=== PATIENT | male | born 1970 | race Caucasian/White ===

== ENCOUNTER 2019-02-12 10:11 | Observation (INO) | payer OTHER ==
[~2019-02-12] VITALS: Ht 185.4 cm; Wt 111.1 kg
--- NOTE | 2019-02-12 10:19 | NUR ---
PT AMBULATED TO ER BED 08
[2019-02-12 10:25] VITALS: BP 152/95
--- NOTE | 2019-02-12 10:41 | NUR ---
PT C/O ERECTION X 3-4 HOURS , PT STATES HE HAS PREVIOUS BACK INJURY FROM 3 YEARS AGO THAT RESULTS IN PRIAPISMS, PT ADMITS TO DRINKING WHISKEY TODAY "3-4 SHOTS". DENIES N/V/D; SKIN IS PINK/WARM/DRY; AAOX4 WITH EVEN AND STEADY GAIT; PT DENIES ANY FEVER, CP, SOB, OR COUGH AT THIS TIME; PATIENT STATES PAIN OF 0/10 AT THIS TIME; VSS; PATIENT POSITIONED FOR COMFORT; HOB ELEVATED; BEDRAILS UP X1; BED DOWN. ER MD MADE AWARE OF PT STATUS.
--- NOTE | 2019-02-12 10:50 | NUR ---
PT AMBULATED TO BATHROOM, UNABLE TO PROVIDE URINE SAMPLE.
[2019-02-12] MEDS ORDERED: MULTIVITAMIN-12 10 ML, THIAMINE 100 MG, MAGNESIUM SULFATE 50% 2,000 MG, FOLIC ACID 5 MG... IV ONE ×5 (10:57)
[2019-02-12] MEDS ORDERED: LORazepam 2 MG/ML VIAL IVP ONE (11:00)
[2019-02-12] MEDS ORDERED: diphenhydrAMINE 50 MG/ML VIAL IVP ONE (11:00)
--- NOTE | 2019-02-12 11:09 | NUR ---
CALLED FOR IV BANANA BAG TO PHARMACY.
[2019-02-12] MEDS ORDERED: PHENYLEPHRINE 10 MG/ML VIAL INJ ONE (11:45)
[2019-02-12 11:50] LABS: EOSINOPHILS # (AUTO) 0.2 K/uL (0-0.4); EOSINOPHILS % (AUTO) 5.1 % (0.0-4.0); HEMATOCRIT 43.9 % (36-52); LYMPHOCYTES # (AUTO) 1.9 K/uL (2.0-11.5); LYMPHOCYTES % (AUTO) 46.9 % (20.5-51.1); MEAN CORPUSCULAR HEMOGLOBIN 30 pg (27-31); MEAN CORPUSCULAR HGB CONC 34 g/dL (33-37); MEAN CORPUSCULAR VOLUME 87.5 fL (80-94); MONOCYTES # (AUTO) 0.5 K/uL (0.8-1.0); MONOCYTES % (AUTO) 11.3 % (1.7-9.3); NEUTROPHILS # (AUTO) 1.5 K/uL (1.8-7.7); NEUTROPHILS % (AUTO) 35.7 % (42.2-75.2); PLATELET COUNT (AUTO) 233 K/uL (140-450); RED BLOOD CELL COUNT(AUTO) 5.02 MIL/uL (4.20-6.10); RED CELL DISTRIBUTION WIDTH 13.8 % (11.6-13.7); WHITE BLOOD COUNT (AUTO) 4.1 K/uL (4.8-10.8)
--- NOTE | 2019-02-12 11:59 | NUR ---
Dr. Menchaca is giving pt injection at bedside.
[2019-02-12 12:03] LABS: ANION GAP 14.7 (8-16); CARBON DIOXIDE 28.1 mmol/L (21-32); POTASSIUM 3.8 mmol/L (3.5-5.1); PROTHROMBIN TIME 9.3 secs (10.8-13.4)
[2019-02-12 12:05] LABS: MAGNESIUM 2.3 mg/dL (1.8-2.4)
[2019-02-12] MEDS ORDERED: TERBUTALINE 1 MG/ML VIAL SUBQ SCH ×2 (12:15→16:00)
[2019-02-12] MEDS ORDERED: PHENYLEPHRINE 10 MG/ML VIAL IV SCH ×2 (12:15→16:00)
[2019-02-12 12:19] LABS: URIC ACID 7.2 mg/dL (2.6-7.2)
[2019-02-12 12:29] LABS: ALBUMIN 3.7 g/dL (3.4-5.0); TOTAL BILIRUBIN 0.2 mg/dL (0.0-1.0)
[2019-02-12 13:15] LABS: APPEARANCE,URINE CLEAR (CLEAR); BILIRUBIN,URINE NEGATIVE (NEGATIVE); BLOOD, URINE NEGATIVE (NEGATIVE); COLOR,URINE YELLOW (YELLOW); LEUKOCYTE ESTERASE ,URINE NEGATIVE (NEGATIVE); NITRITE, URINE NEGATIVE (NEGATIVE); PH,URINE 5.5 (5.0-9.0); UGLUCOSE NEGATIVE (NEGATIVE)
[2019-02-12 13:21] LABS: BARBITURATE, URINE NEG. ng/ml (NEG <=200); BENZODIAZEPINE, URINE NEG. ng/mL (NEG <=200); CANNABINOID, URINE NEG. ng/mL (NEG <=50); COCAINE, URINE NEG. ng/mL (NEG <=300); OPIATE, URINE NEG. ng/mL (NEG <=2000); PHENCYCLIDINE SCREEN,URINE NEG. ng/mL (NEG <=25)
[2019-02-12] MEDS ORDERED: TERBUTALINE 1 MG/ML VIAL SUBQ ONE ×2 (13:38→14:35)
--- NOTE | 2019-02-12 13:57 | NUR ---
Dr. Menchaca is giving pt 2nd injection at bedside.
[2019-02-12] MEDS ORDERED: HYDROcodone/APAP 5/325 MG 1 TAB TAB PO PRN (14:20)
[2019-02-12] MEDS ORDERED: ALBUTEROL 0.083% 2.5 MG/3 ML NEBU INH PRN (14:20)
[2019-02-12] MEDS ORDERED: MORPHINE SULFATE 4 MG/ML SYR IVP PRN (14:20)
[2019-02-12] MEDS ORDERED: LORazepam 2 MG/ML VIAL IVP PRN ×2 (14:20→18:45)
[2019-02-12] MEDS ORDERED: ACETAMINOPHEN 325 MG TAB PO PRN (14:20)
[2019-02-12] MEDS ORDERED: ONDANSETRON 4 MG/2 ML VIAL IVP PRN (14:20)
--- NOTE | 2019-02-12 14:55 | NUR ---
PT ARRIVED ON UNIT VIA GURNEY. PT IS ASLEEP IN BED NOTABLE CHEST RISE AND FALL. ALL SAFETY MEASURES ARE IN PLACE WILL CONTINUE TO MONITOR. RECEIVED HAND OFF REPORT FROM ER NURSE.
--- NOTE | 2019-02-12 14:55 | NUR ---
Patient will be admitted to care of MALE UROGENITAL PROBLEM. Admited to MED-SURGE. Will go to room 122B. Belongings list completed. Report to MICHEAL TAVERAS.
[2019-02-12] MEDS ORDERED: LIDOCAINE/EPI 2% 1:100000 20 ML VIAL INJ SCH (15:45)
--- NOTE | 2019-02-12 16:00 | NUR ---
DR. VITALE AT BEDSIDE PERFORMING BEDSIDE PROCEDURE. PT IS AWAKE AND STABLE ALL SAFETY MEASURES ARE IN PLACE WILL CONTINUE TO MONITOR.
[2019-02-12 16:31] VITALS: BP 102/55
--- NOTE | 2019-02-12 17:29 | NUR ---
FREQUENT ROUNDING PT IS AWAKE IN BED. PT APPEARS STABLE AND IN NO APPARENT DISTRESS. ALL SAFETY MEASURES ARE IN PLACE WILL CONTINUE TO MONITOR.
[2019-02-12] MEDS ORDERED: ZOLPIDEM 5 MG TAB PO PRN (18:45)
--- NOTE | 2019-02-12 19:31 | NUR ---
RECIEVED PT. AWAKE ON BED , WITH IVF INFUSING WELL , NID, AWAKE BUT SLEEPY , V/S WNL , BED IN LOW POSITION , SIDE RAILS UP X2 , CALL LIGHT WITHIN REACH ,WILL CONTINUE TO MONOTOR , PT SLEEPY AND SEEMS CONFUSED. Addendum: 02/13/19 at 0900 by Maritza Rondon RN FOLLOW SIMPLE COMMAND .
--- NOTE | 2019-02-12 19:31 | NUR ---
ENDORSED PT TO SLICE PLUG CUTTER OPERATOR HELPER NURSE PT IS ASLEEP IN BED PT IS STABLE AND IN NO APPARENT DISTRESS. ALL SAFETY MEASURES ARE IN PLACE. BANANA BAG STILL INFUSING PT KEEPS KINKING THE ARM
[2019-02-12 20:00] VITALS: BP 110/80
--- NOTE | 2019-02-12 20:00 | NUR ---
V/S STABLE. NOT IN DISTRESS ,VOIDED FREELY , IV SITE INTACT AND PATENT .BANANA IVF CONSUMED ,BUT I FOUND OUT CONSUME AND DISCONTINUE DOCUMENT ARE ALL ALREADY FILLED UP , CHARGE NURSE AWARE. WILL CONTINUE TO MONITOR.
--- NOTE | 2019-02-12 22:00 | NUR ---
MADE ROUNDS ,PT. SLEEPING ,CALL LIGHT WITHIN ROUNDS.
[2019-02-13] VITALS: BP 110/79
--- NOTE | 2019-02-13 | NUR ---
MADE ROUNDS V/S WITHIN WNL ,NID ,NO BLEEDING NOTED ON THIS TIME, CALL LIGHT WITHIN REACH , WILL CONTINUE TO MONITOR.
--- NOTE | 2019-02-13 02:00 | NUR ---
MADE ROUNDS , PT SLEEPING ,BUT AROUSALABLE BY NAME AND FOLLOW SIMPLE COMMAND.CALL LIGHT WITHIN REACH .
[2019-02-13 04:00] VITALS: BP 112/68
--- NOTE | 2019-02-13 04:00 | NUR ---
MADE ROUNDS V/S WNL.NID ,SLEEPY BUT FOLLOW SIMPLE COMMANDS ,VOIDED FREELY ,WILL CONTINUE TO MONITOR , CALL LIGHT WITHIN REACH.
--- NOTE | 2019-02-13 06:00 | NUR ---
MADE ROUNDS , SLLEPY .BUT FOLLOW SIMPLE COMMANDS ,WILL CONTINUE TO MONITOR ,CALL LIGHT WITHIN REACH.
--- NOTE | 2019-02-13 07:15 | NUR ---
ENDORSED TO AM SHIFT NURSE FOR CONTINUITY OF CARE.
--- NOTE | 2019-02-13 07:16 | NUR ---
RECEIVED ENDORSEMENT FROM GIS MAPPING TECHNICIAN NURSE. PATIENT IS AAOX4, WALLISIAN SPEAKING. RESPIRATIONS ARE EVEN AND UNLABORED ON ROOM AIR. PATIENT DENIES ANY PAIN AT THIS TIME. RIGHT AC 20G IV INTACT AND SL. PLAN OF CARE WAS REVIEWED WITH PATIENT. PATIENT VERBALIZED UNDERSTANDING. SAFETY MEASURES IN PLACE, CALL LIGHT WITHIN REACH.
[2019-02-13 07:28] LABS: BASOPHILS % (AUTO) 0.8 % (0.0-2.0); EOSINOPHILS # (AUTO) 0.1 K/uL (0-0.4); EOSINOPHILS % (AUTO) 2.3 % (0.0-4.0); HEMATOCRIT 40.8 % (36-52); HEMOGLOBIN 14.2 g/dL (12.0-18.0); LYMPHOCYTES # (AUTO) 1.7 K/uL (2.0-11.5); LYMPHOCYTES % (AUTO) 33.6 % (20.5-51.1); MEAN CORPUSCULAR HEMOGLOBIN 30 pg (27-31); MEAN CORPUSCULAR HGB CONC 35 g/dL (33-37); MEAN CORPUSCULAR VOLUME 86.7 fL (80-94); MONOCYTES # (AUTO) 0.6 K/uL (0.8-1.0); MONOCYTES % (AUTO) 11.4 % (1.7-9.3); NEUTROPHILS # (AUTO) 2.6 K/uL (1.8-7.7); NEUTROPHILS % (AUTO) 51.9 % (42.2-75.2); PLATELET COUNT (AUTO) 215 K/uL (140-450); RED BLOOD CELL COUNT(AUTO) 4.71 MIL/uL (4.20-6.10); RED CELL DISTRIBUTION WIDTH 14.1 % (11.6-13.7)
[2019-02-13 07:53] LABS: ALBUMIN 3.3 g/dL (3.4-5.0); CARBON DIOXIDE 27.1 mmol/L (21-32); CREATININE 0.9 mg/dL (0.7-1.3); MAGNESIUM 2.1 mg/dL (1.8-2.4); POTASSIUM 4.1 mmol/L (3.5-5.1); TOTAL BILIRUBIN 0.6 mg/dL (0.0-1.0)
[2019-02-13 08:00] VITALS: BP 162/85
--- NOTE | 2019-02-13 08:58 | NUR ---
PATIENT HAS BEEN SCREENED AND CATEGORIZED LOW NUTRITION RISK. PATIENT WILL BE SEEN WITHIN 7 DA[address] OF ADMISSION. [address]
--- NOTE | 2019-02-13 09:20 | NUR ---
[facility] ROMAN GARCIA AT [phone], SPOKE TO PROVIDED ME WITH FEBRUARY 20, 2019 AT 0830. Addendum: 02/13/19 at 1039 by Verenice Vergara PATIENT ELOPED PER RUFINO MEDRANO
--- NOTE | 2019-02-13 09:57 | NUR ---
SW attempted to conduct assessment. Per RN Meliza, patient has eloped. SW/CM will follow up as needed.
--- NOTE | 2019-02-13 10:00 | NUR ---
RECEIVED PHONE CALL THAT PATIENT HAD ELOPED. NEIGHBOR STATED THAT PATIENT ATE BREAKFAST AND AFTER HE CHANGED INTO HIS CLOTHES AND SALUTED HIM GOODBYE PRIOR TO WALKING OUT. MARY IS AWARE.
--- NOTE | 2019-02-13 10:00 | NUR ---
ATTEMPTED TO CALL FAMILY MEMBER. WRONG NUMBER. DR. DICKSON IS AWARE.
--- NOTE | 2019-02-13 10:45 | NUR ---
TRIED TO CONTACT PATIENT AT [phone], PHONE IS NO LONGER IN SERVICE. CONTACTED [facility] AT [phone], ABLE TO SPEAK TO LIANA, TOLD HER THAT I HAVE BEEN TYING TO CONTACT THE PATIENT. SHE PROVIDED ME OF A DIFFERENT NUMBER ON THEIR FILE, . CONTACTED THE SAID NUMBER AND IT'S A WRONG NUMBER. CONTACTED PATIENT'S MOTHER MARIANGEL ROSALES AT [phone], WRONG NUMBER TOO. CALLED [facility], SPOKE TO JESUS TO CANCEL THE APPOINTMENT.
== END 2019-02-13 08:20 | disposition left against medical advice (07) ==
LOC: MED 10:11 → MTU 14:19
PROVIDERS: ADMIT Internal Medicine Pulmonary Disease; ATTEND Internal Medicine Pulmonary Disease
DX: N48.30 Priapism, unspecified (principal); F10.129 Alcohol abuse with intoxication, unspecified; F15.10 Other stimulant abuse, uncomplicated
CPT/HCPCS: 36415; 54220; 80053; 80305; 81003; 83605; 83735; 84550; 85025; 85379; 85610; 87081; 96365; 96366; 96372; 96375; 99285; A9153; G0378; G0482; J1200; J2001; J2060; J2370; J3105; J3411; J3475; J3490; J7030